=== PATIENT | female | born 1990 | race Caucasian/White ===

== ENCOUNTER 2019-07-15 12:06 | Inpatient (IN) | payer BC ==
[~2019-07-15 12:06] MED LIST: Bupivacaine 0.25% 10 ML SDV ONE
[2019-07-15] MEDS ORDERED: Ondansetron 4 MG/2 ML SDV IVPUSH PRN (12:11)
[2019-07-15] MEDS ORDERED: Nalbuphine 10 MG/1 ML Vial IVPUSH PRN (12:11)
[2019-07-15] MEDS ORDERED: Sodium Chloride 0.9% 10 ML Syringe FLUSH PRN (12:11)
[2019-07-15] MEDS ORDERED: Oxytocin/Lactated Ringers 10 UNIT/1,000 ML BAG IV SCH (12:15)
--- NOTE | 2019-07-15 12:15 | PCM.LDHP ---
L&D History of Present Illness - General Date of Service: 07/15/19 Admit Problem/Dx: Patient Status Order with Admit Dx/Problem 07/15/19 12:11 Patient Status [ADT] Routine Admission Diagnosis/Problem Admission Diagnosis/Problem Gestational hypertension Source of Information: Patient History Limitations: Reports: No Limitations - History of Present Illness Introduction:: Patient is a 29 y/o at 37 6/7 wks gestation who presents for IOL for findings of gestational HTN. BP's have been slowly trending upwards over the last few weeks. Today had 2 mild range BP's in clinic. Slightly feeling exhausted/unwell. No persistent headaches. 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: Reports: Endometriosis, , Spontaneous : 2 Para: 0 LMP (Approximate): - Past Surgical History HEENT Surgical History: Reports: Adenoidectomy, Tonsillectomy Female Surgical History: Reports: Breast Implant, D&C Social & Family History - Tobacco Use Smoking Status *Q: Never Smoker - Alcohol Use Alcohol Use History: No - Recreational Drug Use Recreational Drug Use: No H&P Review of Systems - Review of Systems: Review Of Systems: See Below General: Reports: No Symptoms Pulmonary: Reports: No Symptoms Cardiovascular: Reports: No Symptoms Gastrointestinal: Reports: Abdominal Pain Genitourinary: Reports: No Symptoms Musculoskeletal: Reports: Other (hip/pelvic pain) Psychiatric: Reports: Anxiety L&D Exam - Exam Exam: See Below - OB Specific Contraction Intensity: Irritability Movement: Active Heart Tones: Present Heart Tones per Min: 135 Heart Rate (FHR) Variability: Moderate (6-25 bmp) Presentation: Vertex - Ramirez Score Ramirez Score Cervix Position: Posterior Ramirez Score Consistency: Medium Ramirez Score Effacement: 0-30% Ramirez Score Dilation: Closed Ramirez Score Infant's Station: -3 Ramirez Score Total: 1 - Exam General: Alert, Oriented, Cooperative Lungs: Clear to Auscultation, Normal Respiratory Effort Cardiovascular: Regular Rate, Regular Rhythm GI/Abdominal Exam: Soft, Non-Tender Genitourinary: Normal external exam Extremities: Normal Inspection, Pedal Edema Skin: Warm, Dry, Intact - Patient Data Result Diagrams: 07/15/19 12:50 07/15/19 12:50 - Problem List (1) 38 weeks gestation of SNOMED Code(s): 83175218 ICD Code: Z3A.38 - 38 WEEKS GESTATION OF Status: Acute Current Visit: Yes (2) Gestational hypertension SNOMED Code(s): 702302712 ICD Code: O13.9 - GESTATIONAL HTN W/O SIGNIFICANT PROTEINURIA, UNSP TRIMESTER Status: Acute Current Visit: Yes Qualifiers: Trimester: third trimester Qualified Code(s): O13.3 - Gestational [ -induced] hypertension without significant proteinuria, third trimester Problem List Initiated/Reviewed/Updated: Yes Orders Last 24hrs: Active Orders 24 hr Category Date Time Status Patient Status [ADT] Routine ADT 07/15/19 12:11 Ordered Communication Order [RC] ASDIRECTED Care 07/15/19 12:11 Ordered Communication Order [RC] ASDIRECTED Care 07/15/19 12:11 Ordered Communication Order [RC] ASDIRECTED Care 07/15/19 12:11 Ordered Heart Tones [RC] ASDIRECTED Care 07/15/19 12:12 Ordered Non Stress Test [RC] PER UNIT ROUTINE Care 07/15/19 12:11 Ordered Notify Provider [RC] ASDIRECTED Care 07/15/19 12:11 Ordered Notify Provider [RC] PRN Care 07/15/19 12:11 Ordered Peripheral IV Care [RC] . DIRECTED Care 07/15/19 12:12 Ordered Up ad Leyla [RC] ASDIRECTED Care 07/15/19 12:12 Ordered Vital Signs [RC] ASDIRECTED Care 07/15/19 12:11 Ordered Regular Diet [DIET] Diet 07/15/19 Lunch Ordered ALANINE AMINOTRANSFERASE,ALT [CHEM] Routine Lab 07/15/19 12:11 Ordered ASPARTATE AMNIOTRANSFERASE,AST [CHEM] Routine Lab 07/15/19 12:11 Ordered CBC W/O DIFF,HEMOGRAM [HEME] Routine Lab 07/15/19 12:11 Ordered CREATININE W/GFR [CHEM] Routine Lab 07/15/19 12:11 Ordered PROTEIN/CREATININE RATIO,URINE [URCHEM] Routine Lab 07/15/19 12:11 Ordered RAPID PLASMA REAGIN,RPR [CHEM] Routine Lab 07/15/19 12:11 Ordered TYPE AND SCREEN [BBK] Routine Lab 07/15/19 12:11 Ordered Lactated Ringers [Ringers, Lactated] 1,000 ml Med 07/15/19 12:15 Ordered IV ASDIRECTED Nalbuphine [Nubain] Med 07/15/19 12:11 Ordered 10 mg IVPUSH Q2H PRN Ondansetron [Zofran] Med 07/15/19 12:11 Ordered 4 mg IVPUSH Q4H PRN Oxytocin/Lactated Ringers [Pitocin in LR 10 Units/1,000 Med 07/15/19 12:15 Ordered ML] 10 unit in 1,000 ml IV .CONTINUOUS Oxytocin/Lactated Ringers [Pitocin in LR 10 Units/1,000 Med 07/15/19 12:15 Ordered ML] 10 unit in 1,000 ml IV TITRATE Sodium Chloride 0.9% [Saline Flush] Med 07/15/19 12:11 Ordered 10 ml FLUSH ASDIRECTED PRN miSOPROStol [Cytotec] Med 07/15/19 12:11 Ordered 25 mcg VAG Q4H PRN Electronic Heart Tones Ext w TOCO [WOMSER] Oth 07/15/19 12:11 Ordered Routine Electronic Heart Tones Internal [WOMSER] Per Unit Oth 07/15/19 12:11 Ordered Routine Medication Administration Instruction [OM.PC] Routine Oth 07/15/19 12:11 Ordered Peripheral IV Insertion Adult [OM.PC] Routine Oth 07/15/19 12:11 Ordered Assessment/Plan Comment:: * Labs to be done * Cytotec for IOL. Will switch to pitocin/AROM when able * GBS negative, no need for antibiotics * Pain management per patient preference * Anticipate
[2019-07-15] MEDS ORDERED: ePHEDrine 50 MG/ML SDV IVPUSH PRN (12:35)
[2019-07-15] MEDS ORDERED: diphenhydrAMINE 50 MG/ML SDV IVPUSH PRN (12:35)
[2019-07-15] MEDS ORDERED: fentaNYL 100 MCG/2 ML SDV EPIDUR PRN (12:35)
[2019-07-15] MEDS ORDERED: fentaNYL/Bupivacaine/NS 2 MCG-0.125% 250 ML EPIDUR PRN (12:35)
[2019-07-15] MEDS: Lactated Ringers 1,000 ML IV SCH (13:51)
[2019-07-15] MEDS: Misoprostol 25 MCG (1/4 of 100 MCG) Tab VAG PRN ×2 (13:52→20:09)
[2019-07-15] MEDS: Acetaminophen 325 MG Tab PO PRN (15:08)
[2019-07-16] MEDS ORDERED: Zolpidem 5 MG Tab PO ONE (01:18)
[2019-07-16] MEDS: Oxytocin/Lactated Ringers 10 UNIT/1,000 ML BAG IV SCH ×2 (01:35→16:11)
[2019-07-16] MEDS: Lactated Ringers 1,000 ML IV SCH ×3 (06:09→14:44)
--- NOTE | 2019-07-16 06:43 | PCM.PNLD ---
Labor Progress Note - VS & Meds Vital Signs: Last Vital Signs Temp 37.4 C 07/15/19 12:34 Pulse 95 07/15/19 12:34 Resp 18 07/15/19 12:34 BP 130/99 H 07/15/19 12:34 Pulse Ox 100 07/15/19 12:34 Active Medications: Current Medications Acetaminophen (Tylenol) 975 mg PO Q6H PRN PRN Reason: Headache Last Admin: 07/15/19 15:08 Dose: 975 mg Diphenhydramine HCl (Benadryl) 25 mg IVPUSH Q6H PRN PRN Reason: Itching Ephedrine Sulfate (Ephedrine Sulfate) 5 mg IVPUSH ASDIRECTED PRN PRN Reason: HYPOTENTSION Fentanyl (Sublimaze) 100 mcg EPIDUR Q3H PRN PRN Reason: Pain Fentanyl/Bupivacaine HCl (Fentanyl/Bupivacaine/Ns 2 Mcg-0.125% 250 Ml) 250 ml EPIDUR CONTINUOUS PRN PRN Reason: Pain Lactated Ringer's (Ringers, Lactated) 1,000 mls @ 40 mls/hr IV ASDIRECTED BERNABE Last Admin: 07/16/19 06:09 Dose: 40 mls/hr Oxytocin/Lactated Ringer's (Pitocin In Lr 10 Units/1,000 Ml) 10 unit in 1,000 mls @ 12 mls/hr IV TITRATE BERNABE; Protocol Last Titration: 07/16/19 06:40 Dose: 10 munits/min, 60 mls/hr Oxytocin/Lactated Ringer's (Pitocin In Lr 10 Units/1,000 Ml) 10 unit in 1,000 mls @ 500 mls/hr IV .CONTINUOUS [facility] Misoprostol (Cytotec) 25 mcg VAG Q4H PRN PRN Reason: cervical ripening Last Admin: 07/15/19 20:09 Dose: 25 mcg Nalbuphine HCl (Nubain) 10 mg IVPUSH Q2H PRN PRN Reason: Pain Ondansetron HCl (Zofran) 4 mg IVPUSH Q4H PRN PRN Reason: Nausea/Vomiting Sodium Chloride (Saline Flush) 10 ml FLUSH ASDIRECTED PRN PRN Reason: Keep Vein Open Discontinued Medications Zolpidem Tartrate (Ambien) 5 mg PO ONETIME ONE Stop: 07/16/19 01:19 Last Admin: 07/16/19 01:35 Dose: 5 mg - Uterine Contractions Uterine Monitoring Mode: External Dolores Contraction Intensity: Irritability Uterine Resting Tone: Soft - Monitoring Monitor Mode: External Ultrasound Heart Rate (FHR) Baseline: 125 Heart Rate (FHR) Variability: Moderate (6-25 bmp) Accelerations: Present, 15x15 Decelerations: None Strip Review: Category I - Vaginal Exam Dilation (cm): 2 Effacement (Percent): 75 Station: -3 Cervical Position: Midposition - Labor Progress (Free Text) Labor Progress: Patient received 2 doses of cytotec overnight, but had very frequent, q1 contractions with this. Had to wait about 6 hours between placement of first 2 doses. About 5 hours after 2nd dose decided to switch to pitocin as contractions were still frequent and bothersome. Now on pitocin of 7 and contractions unfortunately only mild. Howard bulb placed. Will continue to increase pitocin per protocol
[2019-07-16] MEDS ORDERED: diphenhydrAMINE 50 MG/ML SDV IVPUSH PRN (08:12)
[2019-07-16] MEDS ORDERED: ePHEDrine 50 MG/ML SDV IVPUSH PRN (08:12)
[2019-07-16] MEDS ORDERED: fentaNYL 100 MCG/2 ML SDV EPIDUR PRN (08:12)
[2019-07-16] MEDS ORDERED: fentaNYL/Bupivacaine/NS 2 MCG-0.125% 250 ML EPIDUR PRN ×2 (08:12→08:18)
--- NOTE | 2019-07-16 08:56 | PCM.PREANE ---
Preanesthetic Assessment - Anesthesia/Transfusion/Family Hx Anesthesia History: Prior Anesthesia Without Reaction Family History of Anesthesia Reaction: No Transfusion History: Prior Transfusion Without Reaction - Review of Systems General: No Symptoms Pulmonary: No Symptoms Cardiovascular: No Symptoms Gastrointestinal: Other (Heart burn occasional) Neurological: Headache (yesterday) Other: Reports: None (Scoliosis ) - Physical Assessment Vital Signs: Last Vital Signs Temp 37.4 C 07/15/19 12:34 Pulse 95 07/15/19 12:34 Resp 18 07/15/19 12:34 BP 130/99 H 07/15/19 12:34 Pulse Ox 100 07/15/19 12:34 Height: 1.65 m Weight: 95.254 kg ASA Class: 2 Mental Status: Alert & Oriented x3 Airway Class: Mallampati = 2 Dentition: Reports: Normal Dentition Thyro-Mental Finger Breadths: 3 Mouth Opening Finger Breadths: 3 ROM/Head Extension: Other Lungs: Clear to Auscultation Cardiovascular: Regular Rate, Regular Rhythm - Lab Values: Laboratory Last Values WBC 10.25 K/mm3 (3.98-10.04) H 07/15/19 12:50 RBC 4.55 M/mm3 (3.98-5.22) 07/15/19 12:50 Hgb 13.6 gm/dl (11.2-15.7) 07/15/19 12:50 Hct 40.5 % (34.1-44.9) 07/15/19 12:50 MCV 89.0 fl (79.4-94.8) 07/15/19 12:50 MCH 29.9 pg (25.6-32.2) 07/15/19 12:50 MCHC 33.6 g/dl (32.2-35.5) 07/15/19 12:50 RDW Std Deviation 42.8 fL (36.4-46.3) 07/15/19 12:50 Plt Count 184 K/mm3 (182-369) 07/15/19 12:50 MPV 11.4 fl (9.4-12.3) 07/15/19 12:50 Creatinine 1.0 mg/dL (0.55-1.02) 07/15/19 12:50 Est Cr Clr Drug Dosing 74.69 mL/min 07/15/19 12:50 Estimated GFR (MDRD) > 60 mL/min (>60) 07/15/19 12:50 AST 33 U/L (15-37) 07/15/19 12:50 ALT 14 U/L (14-59) 07/15/19 12:50 Ur Random Creatinine 22.7 mg/dL (30.0-125.0) L 07/15/19 12:15 U Random Total Protein < 6.0 mg/dL (0.0-11.8) 07/15/19 12:15 Protein/Creatinin Ratio TNP 07/15/19 12:15 RPR Non-reactive (NONREACTIVE) 07/15/19 12:50 Blood Type O POSITIVE 07/15/19 12:50 Gel Antibody Screen Negative 07/15/19 12:50 - Allergies Allergies/Adverse Reactions: Allergies Allergy/AdvReac Type Severity Reaction Status Date / Time No Known Allergies Allergy Verified 07/15/19 12:29 - Acknowledgements Anesthesia Type Planned: Epidural Pt an Appropriate Candidate for the Planned Anesthesia: Yes Alternatives and Risks of Anesthesia Discussed w Pt/Guardian: Yes Pt/Guardian Understands and Agrees with Anesthesia Plan: Yes PreAnesthesia Questionnaire - Past Health History Medical/Surgical History: Denies Medical/Surgical History Hematologic History: Reports: Blood Transfusion(s) Other Hematologic History: blood transfusion 2009 - SUBSTANCE USE Smoking Status *Q: Never Smoker Tobacco Use Within Last Twelve Months: No Second Hand Smoke Exposure: No Recreational Drug Use History: No - CURRENT (IN HOUSE) MEDS Current Meds: Current Medications Acetaminophen (Tylenol) 975 mg PO Q6H PRN PRN Reason: Headache Last Admin: 07/15/19 15:08 Dose: 975 mg Diphenhydramine HCl (Benadryl) 25 mg IVPUSH Q6H PRN PRN Reason: Itching Diphenhydramine HCl (Benadryl) 25 mg IVPUSH Q6H PRN PRN Reason: pruritis Ephedrine Sulfate (Ephedrine Sulfate) 5 mg IVPUSH ASDIRECTED PRN PRN Reason: HYPOTENTSION Ephedrine Sulfate (Ephedrine Sulfate) 5 mg IVPUSH ASDIRECTED PRN PRN Reason: Hypotension Fentanyl (Sublimaze) 100 mcg EPIDUR Q3H PRN PRN Reason: Pain Fentanyl (Sublimaze) 100 mcg EPIDUR Q3H PRN PRN Reason: Pain Fentanyl/Bupivacaine HCl (Fentanyl/Bupivacaine/Ns 2 Mcg-0.125% 250 Ml) 250 ml EPIDUR CONTINUOUS PRN PRN Reason: Pain Fentanyl/Bupivacaine HCl (Fentanyl/Bupivacaine/Ns 2 Mcg-0.125% 250 Ml) 250 ml EPIDUR CONTINUOUS PRN PRN Reason: Pain Lactated Ringer's (Ringers, Lactated) 1,000 mls @ 40 mls/hr IV ASDIRECTED BERNABE Last Admin: 07/16/19 06:09 Dose: 40 mls/hr Oxytocin/Lactated Ringer's (Pitocin In Lr 10 Units/1,000 Ml) 10 unit in 1,000 mls @ 12 mls/hr IV TITRATE BERNABE; Protocol Last Titration: 07/16/19 06:40 Dose: 10 munits/min, 60 mls/hr Oxytocin/Lactated Ringer's (Pitocin In Lr 10 Units/1,000 Ml) 10 unit in 1,000 mls @ 500 mls/hr IV .CONTINUOUS [facility] Misoprostol (Cytotec) 25 mcg VAG Q4H PRN PRN Reason: cervical ripening Last Admin: 07/15/19 20:09 Dose: 25 mcg Nalbuphine HCl (Nubain) 10 mg IVPUSH Q2H PRN PRN Reason: Pain Ondansetron HCl (Zofran) 4 mg IVPUSH Q4H PRN PRN Reason: Nausea/Vomiting Sodium Chloride (Saline Flush) 10 ml FLUSH ASDIRECTED PRN PRN Reason: Keep Vein Open Discontinued Medications Fentanyl/Bupivacaine HCl (Fentanyl/Bupivacaine/Ns 2 Mcg-0.125% 250 Ml) 1 ml EPIDUR CONTINUOUS PRN PRN Reason: Pain Zolpidem Tartrate (Ambien) 5 mg PO ONETIME ONE Stop: 07/16/19 01:19 Last Admin: 07/16/19 01:35 Dose: 5 mg
[2019-07-16] MEDS ORDERED: Calcium Carbonate 500 MG Tab.Chew PO PRN (11:07)
[2019-07-16] MEDS ORDERED: Ampicillin 2 GM in Sodium Chloride 0.9% 100 ML IV ONE (16:32)
--- NOTE | 2019-07-16 16:33 | PCM.SN ---
- Free Text/Narrative Note: 1630 Patient now with a fever. Will start Ampicillin and Gentamicin for chorioamnionitis. Patient also to get 975 mg of Tylenol. Complete and pushing at this time. Continue to monitor closely Melody Elise MD
[2019-07-16] MEDS: Acetaminophen 325 MG Tab PO PRN (16:34)
--- NOTE | 2019-07-16 20:26 | PCM.DEL ---
L & D Note - General Info Date of Service: 07/16/19 - Delivery Note Labor: Induced by Oxytocin Cervical Ripening Method: Misoprostil Delivery Outcome: Livebirth Delivery Method: Spontaneous Vaginal Delivery-Single Infant Delivery Mode: Vacuum Extraction Presentation: Left Occiput Anterior (LALIT) Nuchal Cord: Present (tight, not able to be reduced ) Anesthesia Type: Epidural Amniotic Fluid Description: Clear Episiotomy Type: None Laceration: 1st Degree, Perineal Suture type: Vicryl Suture size: 2-0 Placenta: Intact, Spontaneous Cord: 3 Vessels Estimated Blood Loss: 200 Blanchard: Bulb Syringe, Stimulated, Warmed, Wrens Used, Warmer Used Score 1 min: 4 Score 5 min: 7 Score 10 min: 9 Delivery Comments (Free Text/Narrative):: The patient was pushing in the dorsal lithotomy position. Sterile vaginal exam complete/complete/+2 station. head in LALIT presentation. Maternal pushing effort was good and the pelvis was felt to be adequate for an instrument assisted delivery. Given maternal exhaustion (pushing about 3 hrs at this time) the decision was made to proceed with vacuum assisted vaginal delivery. The mushroom cup was placed without difficulty at 1857. There was one pop off at 1902. Re-applied at 1902 and with another pop off at 1905. Baby brought down to a near position over 4 contractions. At this time patient encouraged to continue pushing on her own which she did do for about another 30 minutes, but then again became exhausted. New vacuum applied again at 1945 with delivery at 194. Total pressure applied 550 mm Hg. Total pop offs : 2. Suction was removed following delivery of the head. Tight nuchal cord present which could not be reduced. With gentle downward traction the shoulders and body delivered. The umbilical cord was clamped and cut and the infant was taken to warmer for assessment. Cord gas segment obtained. Cord blood obtained. Placenta allowed time to separate and expelled intact. Inspection of the perineum following delivery with a 1st degree perineal laceration. This was repaired with a 2-0 vicryl in the typical fashion. Vacuum Extractor Progress Note - Alternative Labor Strategies Considered Alternative Labor Strategies Considered:: Reports: Yes Strategies Considered:: Reports: Contraction Intensity Adequate, Position Changes Used to Facilitate Rotation & Descent, Empty Bladder, Rest Indications Considered:: Reports: Yes Indications:: Reports: Shortening of 2nd Stage for Maternal Benefit Time Out:: Reports: Yes - Patient Prepared Patient Prepared:: Reports: Yes Informed Consent:: Reports: Verbal Risks: Reports: Yes Risks Include:: Reports: Laceration, Shoulder Dystocia, Maternal Injury, Other ( injury) Anesthesia/Analgesia Adequate:: Reports: Yes - Probability of Success High Probability of Success:: Reports: Yes Weight Estimated:: Reports: AGA Patient Diabetic:: Reports: No Pelvis Adequate:: Reports: Yes Position:: LALIT Station:: +2 - Application Time Maximum Application Time & Number of Pop-Offs Predetermined:: Reports: Yes Maximum Pressure Maintained in Green Zone (cm Hg):: 550 Total Application Time (min): *max=20min: 9 (total ) Number of Times Cup Disengaged:: 2 Type of Vacuum Used:: Reports: Cup: Mushroom type Vacuum Extraction: Successful - Exit Strategy Exit strategy available:: Reports: Yes and resuscitation teams readily available:: Reports: Yes - General Info Date of Service: 07/16/19 - Patient Data Vitals - Most Recent: Last Vital Signs Temp 37.4 C 07/15/19 12:34 Pulse 95 07/15/19 12:34 Resp 18 07/15/19 12:34 BP 130/99 H 07/15/19 12:34 Pulse Ox 100 07/15/19 12:34 Weight - Most Recent: 95.254 kg I&O - Last 24 Hours: Intake & Output 07/16/19 07/16/19 07/16/19 06:59 14:59 22:59 Intake Total 1000 2120 Balance 1000 2120 - Problem List & Annotations (1) 38 weeks gestation of SNOMED Code(s): 27260188 Code(s): Z3A.38 - 38 WEEKS GESTATION OF Status: Acute Current Visit: Yes (2) Gestational hypertension SNOMED Code(s): 583407359 Code(s): O13.9 - GESTATIONAL HTN W/O SIGNIFICANT PROTEINURIA, UNSP TRIMESTER Status: Acute Current Visit: Yes Qualifiers: Trimester: third trimester Qualified Code(s): O13.3 - Gestational [ -induced] hypertension without significant proteinuria, third trimester (3) Chorioamnionitis SNOMED Code(s): 64041755 Code(s): O41.1290 - CHORIOAMNIONITIS, UNSP TRIMESTER, NOT APPLICABLE OR UNSP Status: Acute Current Visit: Yes Qualifiers: Fetus number: single or unspecified fetus Trimester: third trimester Qualified Code(s): O41.1230 - Chorioamnionitis, third trimester, not applicable or unspecified (4) Vacuum extraction, delivered, current hospitalization SNOMED Code(s): 806325393 Code(s): O66.5 - ATTEMPTED APPLICATION OF VACUUM EXTRACTOR AND FORCEPS Status: Acute Current Visit: Yes - Problem List Review Problem List Initiated/Reviewed/Updated: Yes - My Orders Last 24 Hours: My Active Orders 07/16/19 11:07 Calcium Carbonate [Tums] 1,000 mg PO Q2HR PRN 07/16/19 20:08 CORD BLOOD EVALUATION [BBK] Routine 07/16/19 20:23 Patient Status Manage Transfer [TRANSFER] Routine - Assessment Assessment:: 29 y/o G2 now P1011 PPD#0 from [facility] at 38 0/7 - Plan Plan:: * Routine cares * No need for further antibiotics * Encourage breast feeding * Monitor BP's closely * Discharge home in 2 days
[2019-07-16] MEDS ORDERED: Witch Hazel Medicated Pads 40/Jar TOP PRN (20:55)
[2019-07-16] MEDS ORDERED: Acetaminophen 325 MG Tab PO PRN (20:55)
[2019-07-16] MEDS ORDERED: Benzocaine/Menthol 20%-0.5% Spray 56 GM Canister TOP PRN (20:55)
[2019-07-16] MEDS: Ibuprofen 600 MG Tab PO PRN (21:13)
[2019-07-16] MEDS: Docusate Sodium 100 MG Cap PO PRN (21:13)
--- NOTE | 2019-07-17 07:23 | PCM.PNPP ---
- General Info Date of Service: 07/17/19 Functional Status: Reports: Pain Controlled, Tolerating Diet, Ambulating, Urinating - Review of Systems General: Reports: No Symptoms Pulmonary: Reports: No Symptoms Cardiovascular: Reports: No Symptoms Gastrointestinal: Reports: No Symptoms Genitourinary: Reports: Other (slight perineal discomfort ) Musculoskeletal: Reports: No Symptoms Neurological: Reports: No Symptoms - Patient Data Vital Signs - Most Recent: Last Vital Signs Temp 36.4 C 07/17/19 02:04 Pulse 95 07/15/19 12:34 Resp 14 07/17/19 02:04 BP 122/83 07/17/19 02:04 Pulse Ox 100 07/15/19 12:34 Weight - Most Recent: 95.254 kg I&O - Last 24 Hours: Intake & Output 07/16/19 07/17/19 07/17/19 22:59 06:59 14:59 Intake Total 2750 Balance 2750 Med Orders - Current: Current Medications Acetaminophen (Tylenol) 650 mg PO Q4H PRN PRN Reason: mild pain or fever Benzocaine/Menthol (Dermoplast Pain Relief [place]) 0 gm TOP ASDIRECTED PRN PRN Reason: Perineal Comfort Measure Last Admin: 07/16/19 21:21 Dose: 1 canister Docusate Sodium (Colace) 100 mg PO BID PRN PRN Reason: Constipation Last Admin: 07/16/19 21:13 Dose: 100 mg Ibuprofen (Motrin) 600 mg PO Q6H PRN PRN Reason: Mild pain or fever Last Admin: 07/16/19 21:13 Dose: 600 mg Witch Mary Ann (Tucks) 1 pad TOP ASDIRECTED PRN PRN Reason: Perineal Comfort Measure Last Admin: 07/16/19 21:21 Dose: 1 tub Discontinued Medications Acetaminophen (Tylenol) 975 mg PO Q6H PRN PRN Reason: Headache Last Admin: 07/16/19 16:34 Dose: 975 mg Calcium Carbonate/Glycine (Tums) 1,000 mg PO Q2HR PRN PRN Reason: Indigestion Last Admin: 07/16/19 11:19 Dose: 1,000 mg Diphenhydramine HCl (Benadryl) 25 mg IVPUSH Q6H PRN PRN Reason: Itching Diphenhydramine HCl (Benadryl) 25 mg IVPUSH Q6H PRN PRN Reason: pruritis Ephedrine Sulfate (Ephedrine Sulfate) 5 mg IVPUSH ASDIRECTED PRN PRN Reason: HYPOTENTSION Ephedrine Sulfate (Ephedrine Sulfate) 5 mg IVPUSH ASDIRECTED PRN PRN Reason: Hypotension Fentanyl (Sublimaze) 100 mcg EPIDUR Q3H PRN PRN Reason: Pain Last Admin: 07/16/19 09:05 Dose: 100 mcg Fentanyl (Sublimaze) 100 mcg EPIDUR Q3H PRN PRN Reason: Pain Fentanyl/Bupivacaine HCl (Fentanyl/Bupivacaine/Ns 2 Mcg-0.125% 250 Ml) 250 ml EPIDUR CONTINUOUS PRN PRN Reason: Pain Fentanyl/Bupivacaine HCl (Fentanyl/Bupivacaine/Ns 2 Mcg-0.125% 250 Ml) 1 ml EPIDUR CONTINUOUS PRN PRN Reason: Pain Fentanyl/Bupivacaine HCl (Fentanyl/Bupivacaine/Ns 2 Mcg-0.125% 250 Ml) 250 ml EPIDUR CONTINUOUS PRN PRN Reason: Pain Last Admin: 07/16/19 09:04 Dose: 250 ml Lactated Ringer's (Ringers, Lactated) 1,000 mls @ 40 mls/hr IV ASDIRECTED BERNABE Last Admin: 07/16/19 14:44 Dose: 40 mls/hr Oxytocin/Lactated Ringer's (Pitocin In Lr 10 Units/1,000 Ml) 10 unit in 1,000 mls @ 12 mls/hr IV TITRATE BERNABE; Protocol Last Titration: 07/16/19 17:39 Dose: 26 munits/min, 156 mls/hr Oxytocin/Lactated Ringer's (Pitocin In Lr 10 Units/1,000 Ml) 10 unit in 1,000 mls @ 500 mls/hr IV .CONTINUOUS BERNABE Last Admin: 07/16/19 21:00 Dose: 500 mls/hr Ampicillin Sodium 2 gm/ Sodium (Chloride) 100 mls @ 200 mls/hr IV ONETIME ONE Stop: 07/16/19 17:01 Last Admin: 07/16/19 16:43 Dose: 200 mls/hr Gentamicin Sulfate 475 mg/ (Sodium Chloride) 111.875 mls @ 200 mls/hr IV ONETIME ONE Stop: 07/16/19 17:05 Last Admin: 07/16/19 17:04 Dose: 200 mls/hr Misoprostol (Cytotec) 25 mcg VAG Q4H PRN PRN Reason: cervical ripening Last Admin: 07/15/19 20:09 Dose: 25 mcg Nalbuphine HCl (Nubain) 10 mg IVPUSH Q2H PRN PRN Reason: Pain Ondansetron HCl (Zofran) 4 mg IVPUSH Q4H PRN PRN Reason: Nausea/Vomiting Sodium Chloride (Saline Flush) 10 ml FLUSH ASDIRECTED PRN PRN Reason: Keep Vein Open Zolpidem Tartrate (Ambien) 5 mg PO ONETIME ONE Stop: 07/16/19 01:19 Last Admin: 07/16/19 01:35 Dose: 5 mg - Infant Interaction Infant Disposition, : [place] in Room with Family Interaction: Holding Infant Feeding: Attempted ; Nursed Fair/Poor Support Person: - Recovery Exam Fundal Tone: Firm Fundal Level: 1 Fingerbreadths Below Umbilicus Fundal Placement: Midline Lochia Amount: Small Lochia Color: Rubra/Red Perineum Description: Edematous, Other (see below) Other Perinuem Description: 1st degree lac with repair Episiotomy/Laceration: Approximated Urinary Elimination: Voided - Exam General: Alert, Oriented, Cooperative GI/Abdominal Exam: Soft, Non-Tender Extremities: Normal Inspection Skin: Warm, Dry, Intact - Problem List & Annotations (1) 38 weeks gestation of SNOMED Code(s): 17938551 Code(s): Z3A.38 - 38 WEEKS GESTATION OF Status: Acute Current Visit: Yes (2) Gestational hypertension SNOMED Code(s): 871875533 Code(s): O13.9 - GESTATIONAL HTN W/O SIGNIFICANT PROTEINURIA, UNSP TRIMESTER Status: Acute Current Visit: Yes Qualifiers: Trimester: third trimester Qualified Code(s): O13.3 - Gestational [ -induced] hypertension without significant proteinuria, third trimester (3) Chorioamnionitis SNOMED Code(s): 52123675 Code(s): O41.1290 - CHORIOAMNIONITIS, UNSP TRIMESTER, NOT APPLICABLE OR UNSP Status: Acute Current Visit: Yes Qualifiers: Fetus number: single or unspecified fetus Trimester: third trimester Qualified Code(s): O41.1230 - Chorioamnionitis, third trimester, not applicable or unspecified (4) Vacuum extraction, delivered, current hospitalization SNOMED Code(s): 725163049 Code(s): O66.5 - ATTEMPTED APPLICATION OF VACUUM EXTRACTOR AND FORCEPS Status: Acute Current Visit: Yes - Problem List Review Problem List Initiated/Reviewed/Updated: Yes - My Orders Last 24 Hours: My Active Orders 07/16/19 20:55 Activity as Tolerated [RC] PER UNIT ROUTINE Vital Signs [RC] 03,09,15,21 Acetaminophen [Tylenol] 650 mg PO Q4H PRN Benzocaine/Menthol [Dermoplast Pain Relief [place]] See Dose Instructions TOP ASDIRECTED PRN Docusate Sodium [Colace] 100 mg PO BID PRN Ibuprofen [Motrin] 600 mg PO Q6H PRN Witch Mary Ann [Tucks] 1 pad TOP ASDIRECTED PRN Assess Lochia [WOMSER] Per Unit Routine Assess Uterine Involution [WOMSER] Per Unit Routine Breast Pump [WOMSER] Per Unit Routine Heat Therapy [OM.PC] PRN Ice Therapy [OM.PC] Per Unit Routine Perineal Care [OM.PC] Per Unit Routine Peripheral IV Discontinue [OM.PC] Routine Sitz Bath [OM.PC] Per Unit Routine 07/16/19 Dinner Regular Diet [DIET] 07/17/19 20:55 Heat Therapy [OM.PC] PRN - Assessment Assessment:: 29 y/o G2 now P1011 PPD#1 from [facility] at 38 0/7 - Plan Plan:: * Routine cares * Encourage breast feeding * Monitor BP's closely - have been normal since delivery * Discharge home tomorrow
--- NOTE | 2019-07-17 11:19 | PCM48HPAN ---
Post Anesthesia Note - EVALUATION WITHIN 48HRS OF ANESTHETIC Vital Signs in Normal Range: Yes Patient Participated in Evaluation: Yes Respiratory Function Stable: Yes Airway Patent: Yes Cardiovascular Function Stable: Yes Hydration Status Stable: Yes Pain Control Satisfactory: Yes Nausea and Vomiting Control Satisfactory: Yes Mental Status Recovered: Yes Vital Signs: Last Vital Signs Temp 36.2 C 07/17/19 07:46 Pulse 72 07/17/19 07:46 Resp 15 07/17/19 07:46 BP 116/80 07/17/19 07:46 Pulse Ox 98 07/17/19 07:46
[2019-07-17] MEDS: Ibuprofen 600 MG Tab PO PRN (23:41)
--- NOTE | 2019-07-18 05:32 | PCM.DCSUM1 ---
Discharge Summary - Discharge Data Discharge Date: 07/18/19 Discharge Disposition: Home, Self-Care 01 Condition: Good - Referral to Home Health Primary Care Physician: Melody Elise MD - Discharge Diagnosis/Problem(s) (1) 38 weeks gestation of SNOMED Code(s): 73837397 ICD Code: Z3A.38 - 38 WEEKS GESTATION OF Status: Acute (2) Gestational hypertension SNOMED Code(s): 897024811 ICD Code: O13.9 - GESTATIONAL HTN W/O SIGNIFICANT PROTEINURIA, UNSP TRIMESTER Status: Acute Qualifiers: Trimester: third trimester Qualified Code(s): O13.3 - Gestational [ -induced] hypertension without significant proteinuria, third trimester (3) Chorioamnionitis SNOMED Code(s): 79686225 ICD Code: O41.1290 - CHORIOAMNIONITIS, UNSP TRIMESTER, NOT APPLICABLE OR UNSP Status: Acute Qualifiers: Fetus number: single or unspecified fetus Trimester: third trimester Qualified Code(s): O41.1230 - Chorioamnionitis, third trimester, not applicable or unspecified (4) Vacuum extraction, delivered, current hospitalization SNOMED Code(s): 634536552 ICD Code: O66.5 - ATTEMPTED APPLICATION OF VACUUM EXTRACTOR AND FORCEPS Status: Acute - Patient Summary/Data Complications: None Consults: None Recommended Follow-up Testing/Procedures: Follow up in 1 week for BP check and 3 weeks for check Hospital Course: 29 y/o at 37 6/7 wks was brought to L&D for IOL for gestational HTN. Induction done with cytotec and the Pitocin. Had SROM. Progressed well to complete dilation. In labor process did spike a fever and was started on Amp/ Gent for chorioamnionitis. Delivery was vacuum assisted secondary to maternal exhaustion. See delivery note. did well without fever and continued to mild range and normal BP's. Was discharged on PPD#2 - Patient Instructions Diet: Regular Diet as Tolerated Activity: As Tolerated Activity, Other: Pelvic Rest for 6 weeks Driving: May Drive Today Showering/Bathing: May Shower Showering/Bathing, Other: May Bathe Notify Provider of: Fever, Increased Pain, Swelling and Redness, Drainage, Nausea and/or Vomiting - Discharge Plan *PRESCRIPTION DRUG MONITORING PROGRAM REVIEWED*: Not Applicable *COPY OF PRESCRIPTION DRUG MONITORING REPORT IN PATIENT TADEO: Not Applicable Home Medications: Home Meds Docusate Sodium [Colace] 100 mg PO BID PRN cap 07/18/19 [Rx] Ibuprofen [Motrin] 600 mg PO Q6H PRN tablet 07/18/19 [Rx] Patient Handouts: , Care After Vaginal Delivery Referrals: Melody Elise MD [Primary Care Provider] - (1 week for BP check - RN only 3 weeks for check ) - Discharge Summary/Plan Comment DC Time >30 min.: No - Patient Data Vitals - Most Recent: Last Vital Signs Temp 36.4 C 07/17/19 16:59 Pulse 85 07/18/19 04:03 Resp 14 07/17/19 16:59 BP 128/91 H 07/18/19 04:03 Pulse Ox 99 07/18/19 04:03 Weight - Most Recent: 95.254 kg I&O - Last 24 hours: Intake & Output 07/17/19 07/17/19 07/18/19 14:59 22:59 06:59 Intake Total 120 240 Balance 120 240 Med Orders - Current: Current Medications Acetaminophen (Tylenol) 650 mg PO Q4H PRN PRN Reason: mild pain or fever Benzocaine/Menthol (Dermoplast Pain Relief [place]) 0 gm TOP ASDIRECTED PRN PRN Reason: Perineal Comfort Measure Last Admin: 07/16/19 21:21 Dose: 1 canister Docusate Sodium (Colace) 100 mg PO BID PRN PRN Reason: Constipation Last Admin: 07/16/19 21:13 Dose: 100 mg Ibuprofen (Motrin) 600 mg PO Q6H PRN PRN Reason: Mild pain or fever Last Admin: 07/17/19 23:41 Dose: 600 mg Witch Mary Ann (Tucks) 1 pad TOP ASDIRECTED PRN PRN Reason: Perineal Comfort Measure Last Admin: 07/16/19 21:21 Dose: 1 tub Discontinued Medications Acetaminophen (Tylenol) 975 mg PO Q6H PRN PRN Reason: Headache Last Admin: 07/16/19 16:34 Dose: 975 mg Bupivacaine HCl (Sensorcaine-Mpf 0.25%) 10 ml .ROUTE .STK-MED ONE Stop: 07/15/19 00:01 Calcium Carbonate/Glycine (Tums) 1,000 mg PO Q2HR PRN PRN Reason: Indigestion Last Admin: 07/16/19 11:19 Dose: 1,000 mg Diphenhydramine HCl (Benadryl) 25 mg IVPUSH Q6H PRN PRN Reason: Itching Diphenhydramine HCl (Benadryl) 25 mg IVPUSH Q6H PRN PRN Reason: pruritis Ephedrine Sulfate (Ephedrine Sulfate) 5 mg IVPUSH ASDIRECTED PRN PRN Reason: HYPOTENTSION Ephedrine Sulfate (Ephedrine Sulfate) 5 mg IVPUSH ASDIRECTED PRN PRN Reason: Hypotension Fentanyl (Sublimaze) 100 mcg EPIDUR Q3H PRN PRN Reason: Pain Last Admin: 07/16/19 09:05 Dose: 100 mcg Fentanyl (Sublimaze) 100 mcg EPIDUR Q3H PRN PRN Reason: Pain Fentanyl/Bupivacaine HCl (Fentanyl/Bupivacaine/Ns 2 Mcg-0.125% 250 Ml) 250 ml EPIDUR CONTINUOUS PRN PRN Reason: Pain Fentanyl/Bupivacaine HCl (Fentanyl/Bupivacaine/Ns 2 Mcg-0.125% 250 Ml) 1 ml EPIDUR CONTINUOUS PRN PRN Reason: Pain Fentanyl/Bupivacaine HCl (Fentanyl/Bupivacaine/Ns 2 Mcg-0.125% 250 Ml) 250 ml EPIDUR CONTINUOUS PRN PRN Reason: Pain Last Admin: 07/16/19 09:04 Dose: 250 ml Lactated Ringer's (Ringers, Lactated) 1,000 mls @ 40 mls/hr IV ASDIRECTED BERNABE Last Admin: 07/16/19 14:44 Dose: 40 mls/hr Oxytocin/Lactated Ringer's (Pitocin In Lr 10 Units/1,000 Ml) 10 unit in 1,000 mls @ 12 mls/hr IV TITRATE BERNABE; Protocol Last Titration: 07/16/19 17:39 Dose: 26 munits/min, 156 mls/hr Oxytocin/Lactated Ringer's (Pitocin In Lr 10 Units/1,000 Ml) 10 unit in 1,000 mls @ 500 mls/hr IV .CONTINUOUS BERNABE Last Admin: 07/16/19 21:00 Dose: 500 mls/hr Ampicillin Sodium 2 gm/ Sodium (Chloride) 100 mls @ 200 mls/hr IV ONETIME ONE Stop: 07/16/19 17:01 Last Admin: 07/16/19 16:43 Dose: 200 mls/hr Gentamicin Sulfate 475 mg/ (Sodium Chloride) 111.875 mls @ 200 mls/hr IV ONETIME ONE Stop: 07/16/19 17:05 Last Admin: 07/16/19 17:04 Dose: 200 mls/hr Misoprostol (Cytotec) 25 mcg VAG Q4H PRN PRN Reason: cervical ripening Last Admin: 07/15/19 20:09 Dose: 25 mcg Nalbuphine HCl (Nubain) 10 mg IVPUSH Q2H PRN PRN Reason: Pain Ondansetron HCl (Zofran) 4 mg IVPUSH Q4H PRN PRN Reason: Nausea/Vomiting Sodium Chloride (Saline Flush) 10 ml FLUSH ASDIRECTED PRN PRN Reason: Keep Vein Open Zolpidem Tartrate (Ambien) 5 mg PO ONETIME ONE Stop: 07/16/19 01:19 Last Admin: 07/16/19 01:35 Dose: 5 mg
[2019-07-18] MEDS: Ibuprofen 600 MG Tab PO PRN (06:52)
[2019-07-18] MEDS: Docusate Sodium 100 MG Cap PO PRN (06:53)
--- NOTE | 2019-07-18 08:36 | PCM.SN ---
- Free Text/Narrative Note: 07/18/19 0815- Was called by OB staff to assess patient for spinal headache. Patient up and about. She complains of pressure in head and behind eyes when she is up and around. After laying flat in bed, she says the pain is different. She also has not been sleeing much. Was informed of possible blood patch placement. Patient wants to try conservative measures first- rest, caffeine, increase fluids.
--- NOTE | 2019-07-18 15:45 | PCM.SN ---
- Free Text/Narrative Note: 07-18-19 1536 Patient up and about in room- smiling- She said she still didn't sleep- Headache gone for a while today. It seems to come and go she said. She does not want an epidural blood patch at this point. Anesthesia will check on her tomorrow.
== END 2019-07-18 06:50 | disposition home or self-care (01) | DRG 560 ==
LOC: JD.OBCHECK 12:06 → JD.OB 12:07 → OBSVTOIN 07-16 19:46 → JD.MS 07-18 05:17
PROVIDERS: ADMIT Obstetrics & Gynecology; ATTEND Obstetrics & Gynecology
PROC: 10D07Z6 Extraction of Products of Conception, Vacuum, Via Natural or Artificial Opening (ICD-10-PCS; principal; 2019-07-16)
PROC: 3E0P7VZ Introduction of Hormone into Female Reproductive, Via Natural or Artificial Opening (ICD-10-PCS; 2019-07-16)
PROC: 3E033VJ Introduction of Other Hormone into Peripheral Vein, Percutaneous Approach (ICD-10-PCS; 2019-07-16)
PROC: 0HQ9XZZ Repair Perineum Skin, External Approach (ICD-10-PCS; 2019-07-16)
DX: O13.4 Gestational [pregnancy-induced] hypertension without significant proteinuria, complicating childbirth (principal); Z3A.37 37 weeks gestation of pregnancy; Z37.0 Single live birth; O41.1230 Chorioamnionitis, third trimester, not applicable or unspecified; O70.0 First degree perineal laceration during delivery; O69.1XX0 Labor and delivery complicated by cord around neck, with compression, not applicable or unspecified; O99.89 Other specified diseases and conditions complicating pregnancy, childbirth and the puerperium; R51 Headache
CPT/HCPCS: 01967; 36415; 51701; 51702; 59025; 59409; 82565; 82570; 84156; 84450; 84460; 85027; 86592; 86850; 86900; 86901; A9270-GY; J0290; J1580; J2590; J3010; J3490; J7030; J7120

== ENCOUNTER 2022-01-20 06:55 | Inpatient (IN) | payer BC ==
[2022-01-20] MEDS ORDERED: Acetaminophen 325 MG Tab PO PRN ×2 (07:49→21:43)
[2022-01-20] MEDS ORDERED: Nalbuphine HCl 10 MG/ 1ML Amp IVPUSH PRN (07:49)
[2022-01-20] MEDS ORDERED: Sodium Chloride 0.9% 10 ML Syringe FLUSH PRN (07:49)
[2022-01-20] MEDS ORDERED: Ondansetron 4 MG/2 ML SDV IVPUSH PRN (07:49)
[2022-01-20] MEDS ORDERED: Calcium Carbonate 500 MG Tab.Chew PO PRN (07:49)
[2022-01-20] MEDS ORDERED: Oxytocin/Lactated Ringers 10 UNIT/1,000 ML BAG IV SCH (08:00)
[2022-01-20] MEDS ORDERED: Ampicillin 2 GM in Sodium Chloride 0.9% 100 ML IV ONE (08:00)
[2022-01-20] MEDS: Lactated Ringers 1,000 ML IV SCH ×3 (08:18→15:52)
[2022-01-20] MEDS: Ampicillin 1 GM in Sodium Chloride 0.9% 100 ML IV SCH ×3 (11:43→19:49)
[2022-01-20] MEDS ORDERED: diphenhydrAMINE 50 MG/ML SDV IVPUSH PRN (12:40)
[2022-01-20] MEDS ORDERED: fentaNYL 100 MCG/2 ML SDV EPIDUR PRN (12:40)
[2022-01-20] MEDS ORDERED: ePHEDrine 50 MG/ML SDV IVPUSH PRN (12:40)
[2022-01-20] MEDS ORDERED: Bupivacaine/fentaNYL/NS 100 ML Bag EPIDUR PRN (12:40)
[2022-01-20] MEDS: Oxytocin/Lactated Ringers 10 UNIT/1,000 ML BAG IV SCH ×2 (20:50→23:25)
[2022-01-20] MEDS ORDERED: Methylergonovine 0.2 MG/1 ML Amp IM ONE (21:53)
[2022-01-20] MEDS ORDERED: Methylergonovine 0.2 MG/1 ML Amp ONE (21:57)
[2022-01-20] MEDS ORDERED: Misoprostol 200 MCG Tab ONE (23:06)
[2022-01-20] MEDS ORDERED: Carboprost Tromethamine 250 MCG/1 ML Amp ONE (23:14)
[2022-01-20] MEDS ORDERED: Lactated Ringers 1,000 ML ONE (23:18)
[2022-01-20] MEDS ORDERED: Oxytocin/Lactated Ringers 10 UNIT/1,000 ML BAG IV ONE (23:20)
[2022-01-20] MEDS ORDERED: Carboprost Tromethamine 250 MCG/1 ML Amp IM ONE (23:22)
[2022-01-20] MEDS ORDERED: Misoprostol 200 MCG Tab PO STA (23:22)
[2022-01-20] MEDS ORDERED: Lidocaine 1% 50 ML MDV ONE (23:51)
[2022-01-20] MEDS ORDERED: fentaNYL 100 MCG/2 ML SDV ONE (23:51)
[2022-01-21] MEDS ORDERED: ceFAZolin 2 GM in Sodium Chloride 0.9% 50 ML IV ONE (00:03)
[2022-01-21] MEDS ORDERED: Midazolam 1 MG/ML 2 ML SDV ONE (00:18)
[2022-01-21] MEDS ORDERED: Propofol 200 MG/20 ML SDV ONE (00:18)
[2022-01-21] MEDS ORDERED: fentaNYL 250 MCG/5 ML SDV ONE (00:19)
[2022-01-21] MEDS ORDERED: Succinylcholine/Sod PF 100 MG/5 ML SYRINGE IV ONE (00:21)
[2022-01-21] MEDS ORDERED: Lidocaine 1% 4 ML ONE (00:21)
[2022-01-21] MEDS ORDERED: ceFAZolin 1 GM Vial ONE (00:39)
[2022-01-21] MEDS ORDERED: Rocuronium 50 MG/5 ML Vial ONE (01:09)
[2022-01-21] MEDS ORDERED: Ondansetron 4 MG/2 ML SDV ONE (01:27)
[2022-01-21] MEDS ORDERED: Lactated Ringers 1,000 ML ONE (01:28)
[2022-01-21] MEDS: Sodium Chloride 0.9% 10 ML Syringe FLUSH SCH (01:32)
[2022-01-21] MEDS: Methylergonovine 0.2 MG/1 ML Amp IM SCH ×2 (01:33→07:48)
[2022-01-21] MEDS: Lactated Ringers 1,000 ML IV SCH (01:47)
[2022-01-21] MEDS ORDERED: fentaNYL 100 MCG/2 ML SDV IVPUSH PRN (01:55)
[2022-01-21] MEDS ORDERED: Ondansetron 4 MG/2 ML SDV IVPUSH PRN (01:55)
[2022-01-21] MEDS: Acetaminophen/HYDROcodone 325-10 MG Tab PO PRN ×4 (03:13→21:09)
[2022-01-21] MEDS: Ibuprofen 600 MG Tab PO PRN ×4 (06:19→23:56)
[2022-01-21] MEDS: Docusate Sodium 100 MG Cap PO PRN ×2 (06:19→21:14)
[2022-01-21] MEDS: Witch Hazel Medicated Pads 40/Jar TOP PRN (06:37)
[2022-01-21] MEDS: Benzocaine/Menthol 20%-0.5% Spray 78 GM Cannister TOP PRN (06:38)
[2022-01-22] MEDS: Acetaminophen/HYDROcodone 325-10 MG Tab PO PRN (03:22)
[2022-01-22] MEDS: Ibuprofen 600 MG Tab PO PRN (06:26)
[2022-01-22] MEDS: Benzocaine/Menthol 20%-0.5% Spray 78 GM Cannister TOP PRN (08:34)
[2022-01-22] MEDS: Witch Hazel Medicated Pads 40/Jar TOP PRN (08:34)
== END 2022-01-22 11:30 | disposition home or self-care (01) | DRG 560 ==
LOC: JD.OB 06:55 → OBSVTOIN 20:59 → JD.OB 20:59
PROVIDERS: ADMIT Obstetrics & Gynecology; ATTEND Obstetrics & Gynecology
PROC: 10D07Z6 Extraction of Products of Conception, Vacuum, Via Natural or Artificial Opening (ICD-10-PCS; principal; 2022-01-20)
PROC: 10907ZC Drainage of Amniotic Fluid, Therapeutic from Products of Conception, Via Natural or Artificial Opening (ICD-10-PCS; 2022-01-20)
PROC: 3E033VJ Introduction of Other Hormone into Peripheral Vein, Percutaneous Approach (ICD-10-PCS; 2022-01-20)
PROC: 0HQ9XZZ Repair Perineum Skin, External Approach (ICD-10-PCS; 2022-01-20)
PROC: 3E0R3BZ Introduction of Anesthetic Agent into Spinal Canal, Percutaneous Approach (ICD-10-PCS; 2022-01-20)
PROC: 0KQM0ZZ Repair Perineum Muscle, Open Approach (ICD-10-PCS; 2022-01-20)
DX: O99.824 Streptococcus B carrier state complicating childbirth (principal); Z3A.39 39 weeks gestation of pregnancy; Z37.0 Single live birth; O72.1 Other immediate postpartum hemorrhage; O70.1 Second degree perineal laceration during delivery
CPT/HCPCS: 01967; 36415; 51701; 51702; 59025; 59409; 85027; 85610; 85730; 86592; 86850; 86900; 86901; 86922; A9270-GY; J0290; J0330; J0690; J2210; J2250; J2370; J2405; J2590; J2704; J3010; J3490; J7120

== ENCOUNTER 2024-12-17 07:52 | Day surgery (SDC) | payer BC ==
[~2024-12-17 07:52] MED LIST changes: -Bupivacaine 0.25% 10 ML SDV ONE; +Sodium Chloride 0.9% 10 ML Syringe FLUSH PRN; +Sodium Chloride 0.9% 10 ML Syringe FLUSH SCH
[2024-12-17] MEDS: Lactated Ringers 1,000 ML IV SCH (08:15)
[2024-12-17 08:30] LABS: HEMATOCRIT 42.2 % (37.0-47.0); HEMOGLOBIN 13.9 gm/dl (12.0-16.0); MEAN CORPUSCULAR HEMOGLOBIN 29.4 pg (28.0-32.0); MEAN CORPUSCULAR HGB CONC 32.9 g/dl (32.0-36.0); MEAN CORPUSCULAR VOLUME 89.2 fl (83.0-99.0); MEAN PLATELET VOLUME 9.8 fl (9.4-12.3); PLATELET COUNT,PLT 222 K/mm3 (150-400); RED BLOOD CELL COUNT 4.73 M/mm3 (4.10-5.30)
[2024-12-17 08:50] LABS: ANION GAP 14.6 (5-15); CALCIUM 8.7 mg/dL (8.5-10.1); EST CRCL DRUG DOSING (CG) 68.45 mL/min; POTASSIUM,K 3.6 mEq/L (3.5-5.1)
[2024-12-17 08:52] LABS: BAND PERCENT MAN 0 % (0-10); BASOPHILS PERCENT MAN 1 (0.1-1.2); EOSINOPHILS PERCENT MAN 0 % (0.7-5.8); LYMPHOCYTES % ATYPICAL MANUAL 0 %; LYMPHOCYTES PERCENT MAN 39 % (20-40); MONOCYTES PERCENT MAN 7 % (2-10)
[2024-12-17 08:53] LABS: PLATELET COUNT ESTIMATE ADEQUATE
[2024-12-17] MEDS ORDERED: Midazolam 1 MG/ML 2 ML SDV ONE (09:04)
[2024-12-17] MEDS ORDERED: fentaNYL 250 MCG/5 ML SDV ONE (09:04)
[2024-12-17] MEDS ORDERED: propofoL 1,000 MG/100 ML 100 ML ONE (09:08)
[2024-12-17] MEDS ORDERED: Lidocaine 2% 5 ML SDV ONE (09:15)
[2024-12-17] MEDS ORDERED: Ropivacaine 0.5% 5 MG/ML 30 ML SDV ONE (09:15)
[2024-12-17] MEDS ORDERED: Dexamethasone 4 MG/ML 5 ML MDV ONE (09:15)
[2024-12-17] MEDS ORDERED: Sugammadex Sodium 200 MG/2 ML VIAL IV ONE (09:15)
[2024-12-17] MEDS ORDERED: Rocuronium 50 MG/5 ML Vial ONE (09:15)
[2024-12-17] MEDS ORDERED: Glycopyrrolate 0.2 MG/ML 2 ML SDV ONE (09:15)
[2024-12-17] MEDS ORDERED: Sodium Chloride 0.9% 100 ML ONE (09:18)
[2024-12-17] MEDS ORDERED: ceFAZolin 2 GM Vial ONE (09:51)
[2024-12-17] MEDS ORDERED: Lactated Ringers 1,000 ML ONE (09:58)
[2024-12-17] MEDS ORDERED: dexmedeTOMIDine HCl 200 MCG/2 ML SDV ONE (09:58)
[2024-12-17] MEDS: EPINEPHrine 1 MG/ML SDV ONE (10:03)
[2024-12-17] MEDS: Bupivacaine 0.5% 30 ML SDV ONE (10:03)
[2024-12-17] MEDS: Lidocaine 1% 30 ML SDV ONE (10:03)
[2024-12-17] MEDS ORDERED: Esmolol 100 MG/10 ML SDV ONE (10:23)
[2024-12-17] MEDS ORDERED: Ketorolac 30 MG/ML SDV ONE (10:58)
[2024-12-17] MEDS: HYDROmorphone 0.5 MG/0.5 ML Syringe IVPUSH PRN (11:52)
[2024-12-17] MEDS: fentaNYL 100 MCG/2 ML SDV IVPUSH PRN (12:20)
[2024-12-17] MEDS: Acetaminophen/oxyCODONE 325-5 MG Tab PO PRN (12:47)
[2024-12-17] MEDS: Ondansetron 4 MG/2 ML SDV IVPUSH PRN (14:35)
== END 2024-12-17 15:10 | disposition home or self-care (01) ==
LOC: JD.SDS 07:52
PROVIDERS: ATTEND Obstetrics & Gynecology
DX: N94.6 Dysmenorrhea, unspecified (principal); N80.03 Adenomyosis of the uterus
CPT/HCPCS: 36415; 58552; 80048; 81025; 85007; 85027; 86850; 86900; 86901; A9270; J0171; J0665; J0690; J1100; J1596; J1805; J1885; J2003; J2250; J2405; J2704; J2795; J3010; J7120; 00944; 64999; J3490